=== PATIENT | male | born 1950 | race Caucasian/White ===

== ENCOUNTER 2020-03-22 14:43 | Outpatient (RCR) | payer MEDICARE, SELFPAY ==
[2020-03-22 16:13] LABS: International Normalized Ratio 1.1; Prothrombin Time (Protime)PT. 13.5 SECONDS (11.7-14.9)
== END 2020-03-22 18:00 | disposition home or self-care (01) ==
LOC: HHLAB 14:43
PROVIDERS: Referring Provider Internal Medicine Infectious Disease; Visit Provider Internal Medicine Infectious Disease
DX: Z79.01 Long term (current) use of anticoagulants (principal)
CPT/HCPCS: 85610

== ENCOUNTER 2020-04-03 12:22 | Outpatient (RCR) | payer MEDICARE, SELFPAY ==
[2020-03-31 13:57] LABS: International Normalized Ratio 1.7; Prothrombin Time (Protime)PT. 19.7 SECONDS (11.7-14.9)
[2020-04-03 14:30] LABS: International Normalized Ratio 2.1; Prothrombin Time (Protime)PT. 22.9 SECONDS (11.7-14.9)
== END 2020-04-03 18:00 | disposition home or self-care (01) ==
LOC: HHLAB 12:22
PROVIDERS: Referring Provider Internal Medicine Infectious Disease; Visit Provider Internal Medicine Infectious Disease
DX: Z79.01 Long term (current) use of anticoagulants (principal)
CPT/HCPCS: 85610

== ENCOUNTER 2020-04-11 13:38 | Outpatient (RCR) | payer MEDICARE, SELFPAY ==
[2020-04-11 14:20] LABS: International Normalized Ratio 2.8; Prothrombin Time (Protime)PT. 28.8 SECONDS (11.7-14.9)
== END 2020-04-11 18:00 | disposition home or self-care (01) ==
LOC: HHLAB 13:38
PROVIDERS: Referring Provider Internal Medicine Infectious Disease; Visit Provider Internal Medicine Infectious Disease
DX: Z79.01 Long term (current) use of anticoagulants (principal)
CPT/HCPCS: 85610